=== PATIENT | female | born 1985 | race Caucasian/White ===

== ENCOUNTER 2016-11-02 10:37 | Emergency (ER) ==
[2016-11-02 10:44] VITALS: BP 144/95
--- NOTE | 2016-11-02 12:35 | PROVIDER DOCUMENTATION ---
HPI-Musculoskeletal Pain/Inj - GENERAL Chief Complaint: Back Pain Stated Complaint: BACK PAIN Time Seen by Provider: 11/02/16 12:30 Source: patient - HX OF PRESENT ILLNESS-MUSKULOSKELTAL Nature of Presenting Problem: 31 yo F presents to ED with cc of nonradiating lower back pain. Pt states she fell around a year ago and has had pain in her lower back ever since. Upon arrival to ED, pt is in no apparent distress. Quality of Pain: reports: aching Severity in ED: moderate Onset/Duration: other (chronic) Timing: still present Modifying Factors: improves with: nothing Any recent injury?: No (injury >1 year ago) Similar Symptoms Previously?: Yes (ongoing 1 year) - BACK & NECK PAIN/INJURY Back/Neck Pain Location: reports: lumbar spine Review of Systems - Adult - REVIEW OF SYSTEMS - ADULT Constitutional: reports: no symptoms reported. denies: chills, fever Eyes: reports: no symptoms reported. denies: discharge, dry eyes Ears, Nose, Mouth & Throat: reports: no symptoms reported. denies: ear discharge, ear pain Cardiovascular: reports: no symptoms reported. denies: chest pain, heart murmur Respiratory: reports: no symptoms reported. denies: cough, dyspnea on exertion Gastrointestinal: reports: no symptoms reported. denies: abdominal pain, frequent heartburn Genitourinary: reports: no symptoms reported. denies: dysuria, flank pain Musculoskeletal: reports: back pain (lower; chronic x 1 year) Integumentary: reports: no symptoms reported. denies: hives, itching Neurological: reports: no symptoms reported. denies: dizziness/vertigo, loss of balance Psychiatric: reports: no symptoms reported. denies: anxiety, emotional problems Endocrine: reports: no symptoms reported. denies: cold intolerance, heat intolerance Hematologic/Lymphatic: reports: no symptoms reported. denies: blood clots, easy bruising Allergic/Immunologic: reports: no symptoms reported. denies: allergic reactions , eczema All Other Systems: Reviewed and Negative Past History - Adult - PAST MEDICAL HISTORY-ADULT Review of Records: reports: Old Records Reviewed, Nursing Assessment Review, Medications Reviewed Major Childhood Illnesses: reports: denies history Cardiovascular: reports: denies history Respiratory: reports: denies history Gastrointestinal: reports: denies history Obstetrical/Gynecological: reports: denies history Genitourinary: reports: denies history Musculoskeletal: reports: chronic pain, intervertebral disc disease, neck/back injury Neurological: reports: denies history Endocrine/Immune: reports: denies history Other Conditions: reports: denies history - PRIOR SURGERIES/PROCEDURES Surgical/Procedure History: reports: BTL, - IMMUNIZATION STATUS Childhood Immunizations: UTD Flu Vaccine: See Nurse Assessment - FAMILY HISTORY Family History: reviewed, not pertinent Physical Exam-Injury Related - Physical Exam-Injury Related Initial Vital Signs Reviewed: Yes General Appearance: appears well, alert Eyes: PERRL/EOMI, pink conjunctivae Head, Ears, Nose, Mouth & Throat: normocephalic/atraumatic, moist mucous membranes Neck: non-tender, full range of motion Respiratory: no respiratory distress, no accessory muscle use Cardiovascular: normal peripheral pulses, regular rate, rhythm Abdominal Exam: non tender, soft Lymphatic: no adenopathy Back Exam: no CVA tenderness, vertebral tenderness. negative: swelling Extremity: normal range of motion, non-tender, normal gait Integumentary: normal color, warm/dry, blanching Neurologic: grossly normal, no motor/sensory deficits Psych/Mental Status: normal mood/affect, normal thought content, normal thought process - Glascow Coma Score Best Eye Response (Blanchard): (4) open spontaneously Best Verbal Response (Kera): (5) oriented Best Motor Response (Kera): (6) obeys commands Progress - PLAN OF CARE/RESULTS Progress/Plan/Lab Results: Vital Signs - 24 hr 11/02/16 10:42 Temperature 98.2 F Pulse Rate 90 Respiratory 18 Rate Blood Pressure 144/95 O2 Sat by Pulse 100 Oximetry Departure - Departure Time of Disposition Order: 12:34 DIAGNOSIS: Chronic back pain greater than 3 months duration Disposition: HOME 01 Certified Medical Emergency: Emergent Condition: Good Additional Instructions: ED Follow Up Instructions: You have been treated by a care provider in the Emergency Department. These instructions are being provided to you so you can have an understanding of how to care for yourself upon discharge. Upon discharge from the Emergency Department, you are responsible for making arrangements for follow-up care by a physician of your choice. Take all prescribed medications as directed. Return to the Emergency Department immediately for any new or worsening symptoms. You may call the Physician Referral phone number at [phone] to obtain a list of Physicians who are taking new patients. Prescriptions: Cyclobenzaprine [Flexeril] 10 mg PO TID #30 tablet Naproxen [Naprosyn] 500 mg PO BID #60 tablet Acetaminophen with Codeine [Tylenol with Codeine #3 Tablet] 1 each PO Q6H PRN PRN #30 tablet PRN Reason: Pain Referrals: None,PCP [Primary Care Provider] - Attestation - Scribe Verification/Attestation Scribe:: Drea Ackerman Acting as Scribe for:: Roberto Lo Scribe documention review:: This chart was documented by a scribe and accurately reflects the service the provider performed and the decisions made by the provider. - Physician/ Mid-level Attestation Patient care was provided by Mid-level provider ([employer]/PA):: No
== END 2016-11-02 12:49 | disposition home or self-care (01) ==
LOC: P.ED 10:37
DX: G89.29 Other chronic pain (principal); M54.5 Low back pain
CPT/HCPCS: 99282

== ENCOUNTER 2017-01-21 19:51 | Inpatient (IN) ==
[2017-01-21 21:27] LABS: MANUAL DIFF NEEDED? NO
[2017-01-21 21:28] LABS: URINE CULTURE PL NEEDED? NO; URINE SOURCE CLEAN CATCH
[2017-01-21 21:29] LABS: BASO% 0.1 % (0.0-0.8); EOS# 0.13 X1000 (0.0-0.7); EOS% 0.9 % (0.0-10.0); HEMATOCRIT 40.1 % (37.0-47.0); HEMOGLOBIN 13.5 g/dL (12.0-16.0); IMM GRAN# 0.06 X1000 (0.0-0.04); IMM GRAN% 0.4 % (0.0-0.5); LYMPH# 2.41 X1000 (1.2-3.4); LYMPH% 16.8 % (20.5-51.1); MCH 30.9 PG (27-31); MCHC 33.7 g/dL (33-37); MCV 91.8 FL (81-99); MONO# 0.39 X1000 (0.11-0.59); MONO% 2.7 % (1.7-9.3); MPV 8.7 FL (7.4-10.4); NEUT% 79.1 % (42.2-75.2); PLT 248 X1000 (130-400); RBC 4.37 XMIL (4.2-5.4)
[2017-01-21] MEDS ORDERED: G.I. COCKTAIL PO ONE (21:37)
[2017-01-21 21:45] LABS: BILIRUBIN URINE NEGATIVE (NEGATIVE); BLOOD URINE NEGATIVE (NEGATIVE); CLARITY SL. CLOUDY (CLEAR); COLOR YELLOW; GLUCOSE URINE NEGATIVE (NEGATIVE); LEUKOCYTES URINE NEGATIVE (NEGATIVE); NITRITE URINE NEGATIVE (NEGATIVE); PH URINE 6.5; PROTEIN URINE NEGATIVE (NEGATIVE); SP GRAVITY URINE 1.015; UROBILINOGEN URINE NORMAL
--- NOTE | 2017-01-21 21:47 | PROVIDER DOCUMENTATION ---
HPI-Abdominal Pain/GI Problem - General Source: patient - History of Present Illness-ABD Nature of Presenting Problems: 31 y/o F present to the ED with sharp abdominal pain that began at 2pm today. Pt says she is nausea. No vomiting and no change in bowel habits. Pt states she did not take any of her home pain meds because she thought it would not help. Pain Radiation: reports: epigastric Quality of Pain: reports: sharp Severity in ED: reports: moderate Onset/Duration: reports: this afternoon Timing: reports: still present Modifying Factors: improves with: nothing Associated Symptoms: reports: nausea. denies: diarrhea, fever/chills, sinus congestion/drainage, rash, vomiting Last BM: 24 hours ago <Leonard Arreguin - Last Filed: 01/22/17 01:38> <Gorge Martínez - Last Filed: 01/22/17 02:18> - General Chief Complaint: Abdominal Pain Stated Complaint: ABD PAIN Time Seen by Provider: 01/21/17 21:14 Allergies/Adverse Reactions: Patient Allergies Allergy/AdvReac Type Severity Reaction Status Date / Time No Known Allergies Allergy Verified 01/17/17 11:20 Home Medications: Home Medication List Medication Instructions Recorded Confirmed Last Taken Type Albuterol Sulfate [Proair Hfa] 8.5 gm IH Q4-6H PRN PRN #1 01/17/17 Unknown Rx hfa.aer.ad Benzonatate [Tessalon] 100 mg PO TID PRN PRN #20 capsule 01/17/17 Unknown Rx Fluoxetine [Prozac] 20 mg PO DAILY 01/17/17 01/17/17 01/17/17 History Clonazepam [Klonopin] 1 mg PO 01/21/17 Unknown History Oxycodone HCl/Acetaminophen 5 mg PO 01/21/17 Unknown History [Percocet 5-325 mg Tablet] Zolpidem [Ambien] 10 mg PO HS 01/21/17 01/21/17 Unknown History Review of Systems - Adult - REVIEW OF SYSTEMS - ADULT Constitutional: denies: chills, fever Eyes: reports: no symptoms reported Ears, Nose, Mouth & Throat: reports: no symptoms reported Cardiovascular: denies: chest pain, edema, palpitations, syncope Respiratory: reports: no symptoms reported Gastrointestinal: reports: abdominal pain, nausea. denies: constipation, diarrhea, vomiting Genitourinary: reports: no symptoms reported Musculoskeletal: reports: no symptoms reported Integumentary: reports: no symptoms reported Neurological: reports: no symptoms reported Psychiatric: reports: no symptoms reported Endocrine: reports: no symptoms reported Hematologic/Lymphatic: reports: no symptoms reported Allergic/Immunologic: reports: no symptoms reported All Other Systems: Reviewed and Negative <Leonard Arreguin - Last Filed: 01/22/17 01:38> Past History - Adult - PAST MEDICAL HISTORY-ADULT Review of Records: reports: Old Records Reviewed, Nursing Assessment Review, Medications Reviewed Major Childhood Illnesses: reports: denies history Cardiovascular: reports: denies history Respiratory: reports: denies history Gastrointestinal: reports: denies history Obstetrical/Gynecological: reports: denies history Genitourinary: reports: denies history Musculoskeletal: reports: chronic pain, intervertebral disc disease, neck/back injury Neurological: reports: denies history Psychiatric: reports: depression Endocrine/Immune: reports: denies history Other Conditions: reports: denies history - PRIOR SURGERIES/PROCEDURES Surgical/Procedure History: reports: cholecystectomy, , other (tubal ligation) - IMMUNIZATION STATUS Childhood Immunizations: UTD Flu Vaccine: See Nurse Assessment - FAMILY HISTORY Family History: reviewed, not pertinent - SOCIAL HISTORY Smoking: cigarettes, less than 1 pack/day Substance Use: alcohol Alcohol Use Frequency: occasionally Living Situation: family <Leonard Arreguin - Last Filed: 01/22/17 01:38> Physical Exam-General - PHYSICAL EXAM-ADULT Initial Vital Signs Reviewed: Yes - CONSTITUTIONAL General Appearance: alert, no apparent distress - EYES Eyes: PERRL/EOMI, pink conjunctivae - HEAD, EARS, NOSE, MOUTH & THROAT HENMT: moist mucous membranes, normal ENT inspection, TMs normal, pharynx normal - NECK Neck: non-tender, full range of motion, supple, normal inspection - RESPIRATORY Respiratory: lungs clear, normal breath sounds, no pleuratic chest pain, no respiratory distress, no accessory muscle use - CARDIOVASCULAR Cardiovascular: normal peripheral pulses, regular rate, rhythm - GASTROINTESTINAL (ABDOMEN) Abdominal Exam: normal bowel sounds, soft, tenderness (epigastric) - MUSCULOSKELETAL Back Exam: normal inspection, no CVA tenderness, no vertebral tenderness Extremity: normal range of motion, non-tender, normal gait, normal inspection - SKIN Integumentary: normal color, normal turgor, warm/dry - NEUROLOGIC Neurologic: grossly normal, no motor/sensory deficits - PSYCHIATRIC Psych/Mental Status: normal mood/affect, normal thought content, normal thought process, oriented x 3 <Leonard Arreguin - Last Filed: 01/22/17 01:38> Progress - PLAN OF CARE/RESULTS Progress/Plan/Lab Results: Orders Category Date Time Status ED: Urine Bedside ORDERED Care 01/21/17 20:29 Active ABDOMEN FLAT/UPRIGHT [RAD] Stat Exams 01/21/17 21:34 Taken ABDOMEN/PELVIS W/CONTRAST [CT] Stat Exams 01/21/17 22:07 Taken AMYLASE [CHEM] Stat Lab 01/21/17 21:20 Completed CBC WITH DIFF [HEME] Stat Lab 01/21/17 21:20 Completed COMPREHENSIVE METABOLIC PANEL [CHEM] Stat Lab 01/21/17 21:20 Completed LIPASE [CHEM] Stat Lab 01/21/17 21:[address] W/POSS RFLX CULT [URINALYSIS] Stat Lab 01/21/17 21:20 Completed 0.9% Sodium Chloride Inj [Ns] 1,000 ml Med 01/21/17 22:25 Active IV 250 mls/hr Lido/Encarnacion Alk/Al&mg Hydrox [G.i. Cocktail] Med 01/21/17 21:37 Discontinued 30 ml PO NOW ONE Morphine Med 01/21/17 22:25 Discontinued 4 mg IV NOW ONE Polyethylene Glycol 3350 [Miralax] Med 01/21/17 22:07 Discontinued 17 gm PO NOW ONE Promethazine [Phenergan] Med 01/21/17 22:25 Discontinued 25 mg IV NOW ONE Sodium Chloride 0.9% Med 01/21/17 22:25 Discontinued 10 ml INJ NOW ONE Vital Signs Temp Pulse Resp BP Pulse Ox 01/21/17 20:23 98 F 93 H 18 141/87 100 No Known Allergies Allergy (Verified 01/17/17 11:20) Albuterol Sulfate [Proair Hfa] 8.5 gm IH Q4-6H PRN PRN #1 hfa.aer.ad 01/17/17 Benzonatate [Tessalon] 100 mg PO TID PRN PRN #20 capsule 01/17/17 Fluoxetine [Prozac] 20 mg PO DAILY 01/17/17 Clonazepam [Klonopin] 1 mg PO 01/21/17 Oxycodone HCl/Acetaminophen [Percocet 5-325 mg Tablet] 5 mg PO 01/21/17 Zolpidem [Ambien] 10 mg PO HS 01/21/17 Laboratory 01/21/17 01/21/17 01/21/17 21:20 21:20 21:20 WBC 14.33 H RBC 4.37 Hgb 13.5 Hct 40.1 MCV 91.8 MCH 30.9 MCHC 33.7 RDW Std Deviation 12.7 Plt Count 248 MPV 8.7 Immature Gran % (Auto) 0.4 Neut % (Auto) 79.1 H Lymph % (Auto) 16.8 L Swift % (Auto) 2.7 Eos % (Auto) 0.9 Baso % (Auto) 0.1 Immature Gran # (Auto) 0.06 H Neut # (Auto) 11.32 H Lymph # (Auto) 2.41 Swift # (Auto) 0.39 Eos # (Auto) 0.13 Baso # (Auto) 0.02 Sodium 136 Potassium 3.5 Chloride 97 L Carbon Dioxide 24 L Anion Gap 15 BUN 9 Creatinine 0.5 Estimated GFR/1.73 m2 > 60 BUN/Creatinine Ratio 18 Glucose 101 Calculated Osmolality 271 Calcium 9.2 Total Bilirubin 0.20 AST 30 ALT 42 H Alkaline Phosphatase 98 Total Protein 7.0 Albumin 4.1 Globulin 3.0 Albumin/Globulin Ratio 1.0 Amylase 199 Lipase 515 H Urine Source CLEAN CATCH Urine Color YELLOW Urine Clarity SL. CLOUDY A Urine pH 6.5 Ur Specific [place] 1.015 Urine Protein NEGATIVE Urine Ketones NEGATIVE Urine Blood NEGATIVE Urine Nitrite NEGATIVE Urine Bilirubin NEGATIVE Urine Urobilinogen NORMAL Urine Microscopic RBC Not Reportable Urine WBC NEGATIVE Ur Epithelial Cells <10 Urine Bacteria 4+ Urine Glucose NEGATIVE - XRAY 1 XRAY Study: Abdomen Impression: Abnormal XRAY Interpretation: Constipation - CT/MRI 1 CT Study: Abdomen, Pelvis Impression: Abnormal (peripancreatic alfredito and moderate ill-defined fluid suspicious foracute pancreatitis correlate clincally.) <Leonard Arreguin - Last Filed: 01/22/17 01:38> Departure <Leonard Arreguin - Last Filed: 01/22/17 01:38> - Departure Time of Disposition Order: 02:00 Certified Medical Emergency: Emergent <Gorge Martínez - Last Filed: 01/22/17 02:18> - Departure DIAGNOSIS: Pancreatitis Qualifiers: Chronicity: acute Pancreatitis type: alcohol induced Acute pancreatitis complication: no infection or necrosis Qualified Code(s): K85.20 - Alcohol induced acute pancreatitis without necrosis or infection Disposition: ADMITTED INPATIENT 09 Condition: Fair Attestation - Scribe Verification/Attestation Scribe:: Leonard Arreguin Acting as Scribe for:: Gorge Martínez Scribe documention review:: This chart was documented by a scribe and accurately reflects the service the provider performed and the decisions made by the provider. <Leonard Arreguin - Last Filed: 01/22/17 01:38> Physician Attestation
[2017-01-21 21:54] LABS: URINE EPITHELIAL CELLS <10 /HPF (<10)
[2017-01-21 22:05] LABS: AGAP 15; ALBUMIN 4.1 g/dL (3.5-5.0); ALKALINE PHOSPHATASE 98 U/L (32-104); AMYLASE 199 U/L (20-200); BUN 9 mg/dL (8-22); CALCIUM 9.2 mg/dL (8.8-10.2); CHLORIDE 97 mmol/L (98-107); COSMO 271; GOT 30 U/L (10-30); GPT 42 U/L (10-36); LIPASE 515 U/L (13-60); POTASSIUM 3.5 mmol/L (3.5-5.1); SODIUM 136 mmol/L (136-145); TCO2 24 mmol/L (25-35)
[2017-01-21] MEDS ORDERED: MIRALAX PO ONE (22:07)
[2017-01-21] MEDS ORDERED: SODIUM CHLORIDE 0.9% INJ ONE (22:25)
[2017-01-21] MEDS ORDERED: MORPHINE IV ONE (22:25)
[2017-01-21] MEDS ORDERED: PHENERGAN IV ONE (22:25)
[2017-01-21] MEDS ORDERED: NS 1,000 ML IV PRN (22:25)
[2017-01-22] MEDS ORDERED: SODIUM CHLORIDE 0.9% INJ ONE (02:18)
[2017-01-22] MEDS ORDERED: VENTOLIN HFA INH PRN (02:21)
[2017-01-22] MEDS: MORPHINE IV PRN ×2 (02:45→04:49)
[2017-01-22] MEDS: NS 1,000 ML IV SCH ×2 (02:46→12:50)
[2017-01-22] MEDS: PHENERGAN IV PRN ×2 (04:48→12:47)
[2017-01-22] MEDS ORDERED: KLONOPIN PO PRN (05:15)
[2017-01-22] MEDS ORDERED: MORPHINE IV PRN (06:57)
--- NOTE | 2017-01-22 08:29 | Diag Imaging Result Document ---
PROCEDURE NAME: ABDOMEN FLAT/UPRIGHT - 01/21/2017 FLAT AND UPRIGHT ABDOMEN: FINDINGS: There is a large amount of stool throughout the colon most notably in the right colon. There are surgical clips in the gallbladder fossa. The stomach and small bowel are not distended. There are no abnormal calcifications present. IMPRESSION: Constipation.
[2017-01-22] MEDS: DILAUDID IV PRN ×5 (08:34→22:29)
[2017-01-22] MEDS: PROZAC PO SCH (08:34)
--- NOTE | 2017-01-22 09:21 | Diag Imaging Result Document ---
PROCEDURE NAME: ABDOMEN/PELVIS W/CONTRAST - 01/21/2017 CT SCAN OF THE ABDOMEN AND PELVIS WITH CONTRAST: INDICATION: Right lower quadrant pain. COMPARISON: 07/02/2016. Preliminary interpretation was given by the on-call radiologist. FINDINGS: There is increased attenuation at both lung bases compatible with atelectasis or scarring. There are cholecystectomy clips. There is a nonspecific 12 mm hypodensity within the left lobe of the liver. There is moderate peripancreatic fluid and soft tissue stranding suggesting acute pancreatitis. No pseudocyst, necrosis, or splenic vein thrombosis is appreciated. The kidneys are unremarkable. The appendix appears normal. There is a small amount of free fluid within the pelvis. No free air is demonstrated. There is fluid within the endometrial canal. There is mild constipation. Mildly prominent small bowel loops are noted in the left upper quadrant consistent with mild localized ileus. There is no free air. IMPRESSION: 1. Moderate peripancreatic fluid and soft tissue stranding suggesting acute pancreatitis. Correlate clinically. 2. 12 mm hypodensity in the left lobe of the liver could represent a hemangioma but considered indeterminate. 3. Status-post cholecystectomy. 4. Normal appendix. 5. Mild constipation.
[2017-01-22 09:30] LABS: MANUAL DIFF NEEDED? NO
[2017-01-22 09:32] LABS: BASO% 0.1 % (0.0-0.8); EOS# 0.05 X1000 (0.0-0.7); EOS% 0.5 % (0.0-10.0); HEMATOCRIT 37.3 % (37.0-47.0); HEMOGLOBIN 12.6 g/dL (12.0-16.0); IMM GRAN# 0.02 X1000 (0.0-0.04); IMM GRAN% 0.2 % (0.0-0.5); LYMPH# 1.29 X1000 (1.2-3.4); MCH 30.9 PG (27-31); MCHC 33.8 g/dL (33-37); MCV 91.4 FL (81-99); MONO% 3.7 % (1.7-9.3); MPV 8.5 FL (7.4-10.4); NEUT% 83.5 % (42.2-75.2); PLT 211 X1000 (130-400); RBC 4.08 XMIL (4.2-5.4)
--- NOTE | 2017-01-22 09:38 | HISTORY AND PHYSICAL ---
PRIMARY CARE PHYSICIAN: None. CHIEF COMPLAINT: Epigastric abdominal pain with nausea that began around 2:00 p.m. yesterday. HISTORY OF PRESENTING ILLNESS: This is a 31-year-old female who presented to [facility] ER with an acute onset of epigastric abdominal pain with nausea that began around 2:00 p.m. yesterday. She states that she did not have any vomiting or diarrhea. Workup in the ER showed a white blood cell count of 14.33. Abdomen x-ray showed constipation. CT of the abdomen and pelvis showed peripancreatic edema and moderate ill-defined fluid suspicious for an acute pancreatitis, so, she was admitted for further evaluation and treatment. PAST MEDICAL HISTORY: Chronic pain. PAST SURGICAL HISTORY: Cholecystectomy, section, and bilateral tubal ligation. FAMILY HISTORY: Noncontributory. SOCIAL HISTORY: She currently lives with her family. She denies any tobacco, alcohol, or illicit drug use. ALLERGIES: She has no known drug allergies. HOME MEDICATIONS: 1. Percocet 5 one p.o. q. 8 hours p.r.n.; will be held. 2. Klonopin 1 mg p.o. daily p.r.n. 3. Prozac 20 mg p.o. daily. LABORATORY: Laboratory data showed a white blood cell count of 14.33, a hemoglobin of 13.5, hematocrit 40.1, platelets 248,000. Sodium 136, potassium 3.5, chloride 97, CO2 of 24. BUN of 9, creatinine 0.5, glucose 101. Amylase 199, lipase 515. Urinalysis was negative except for 4+ bacteria. Abdomen x-ray showed constipation. CT of the abdomen and pelvis per ER documentation showed peripancreatic edema and moderate ill- defined fluid suspicious for an acute pancreatitis. Correlate clinically. REVIEW OF SYSTEMS: She denied any fever, chills, blurred vision, dizziness, chest pain, coughing, shortness of breath. She was positive for epigastric abdominal pain, nausea. She denied any vomiting, diarrhea, burning or hurting with urination. PHYSICAL EXAMINATION: VITAL SIGNS: On arrival, she had a temperature of 98 degrees, pulse 93, Respirations 18, blood pressure 141/87. Saturating 100% on room air. GENERAL: This is a 31-year-old female who is lying in the bed and answers questions appropriately. HEENT: Normocephalic and atraumatic. Pupils are equal, round, reactive to light. Extraocular movements are intact. Oropharynx and nares are clear. NECK: Supple. LUNGS: Clear to auscultation bilaterally with equal lung expansion and chest wall movement. HEART: With regular rate and rhythm. No murmurs, rubs, or gallops. ABDOMEN: Soft. There is tenderness to palpation to the epigastric and right upper quadrant area. Bowel sounds are present x4 quadrants. EXTREMITIES: No clubbing, cyanosis, or edema. NEUROLOGIC: The cranial nerves 2-12 are grossly intact. ASSESSMENT: 1. Acute pancreatitis. 2. Epigastric abdominal pain. 3. Nausea. 4. Leukocytosis, most likely reactive. PLAN: She was admitted to the medical unit at [facility], held n.p.o., placed on normal saline at 100 mL an hour, Dilaudid 1 mg IV q. 3 hours p.r.n., Phenergan 12.5 mg IV q.4 hours p.r.n. We will recheck a CBC, CMP, and lipase this a.m. If there is improvement in those, we will make an effort to advance her to at least some ice chips if tolerated and then advance as she tolerates. Dictated by EMERITA Kwong for Phill Welch MD pt examined, agree with above, pt did admit to drinking more heavily since last , last drink was 4-5 days ago but was a pint of liquor, suspect this is cause of pancreatitis, but we will continue to follow closely APENOT MTDD
[2017-01-22 09:58] LABS: AGAP 9; ALBUMIN 3.8 g/dL (3.5-5.0); ALKALINE PHOSPHATASE 86 U/L (32-104); BUN 5 mg/dL (8-22); CALCIUM 8.1 mg/dL (8.8-10.2); CHLORIDE 102 mmol/L (98-107); COSMO 270; GOT 31 U/L (10-30); GPT 40 U/L (10-36); POTASSIUM 3.8 mmol/L (3.5-5.1); SODIUM 136 mmol/L (136-145); TCO2 25 mmol/L (25-35); TOTAL PROTEIN 5.9 g/dL (6.3-8.3)
[2017-01-22] MEDS ORDERED: LR 1,000 ML IV ONE (15:44)
[2017-01-22] MEDS: LR 1,000 ML IV SCH (18:11)
[2017-01-22] MEDS: AMBIEN PO SCH (20:12)
[2017-01-23] MEDS: LR 1,000 ML IV SCH ×5 (00:11→22:00)
[2017-01-23] MEDS: DILAUDID IV PRN ×6 (04:12→21:06)
[2017-01-23 06:18] LABS: MANUAL DIFF NEEDED? NO
[2017-01-23 06:25] LABS: BASO% 0.1 % (0.0-0.8); EOS# 0.19 X1000 (0.0-0.7); EOS% 2.6 % (0.0-10.0); HEMATOCRIT 36.8 % (37.0-47.0); HEMOGLOBIN 12.1 g/dL (12.0-16.0); IMM GRAN# 0.01 X1000 (0.0-0.04); IMM GRAN% 0.1 % (0.0-0.5); LYMPH# 1.12 X1000 (1.2-3.4); LYMPH% 15.4 % (20.5-51.1); MCH 30.7 PG (27-31); MCHC 32.9 g/dL (33-37); MCV 93.4 FL (81-99); MONO% 5.5 % (1.7-9.3); MPV 8.9 FL (7.4-10.4); NEUT% 76.3 % (42.2-75.2); PLT 193 X1000 (130-400); RBC 3.94 XMIL (4.2-5.4)
[2017-01-23 07:01] LABS: AGAP 12; ALBUMIN 3.6 g/dL (3.5-5.0); ALKALINE PHOSPHATASE 144 U/L (32-104); BUN 4 mg/dL (8-22); CALCIUM 8.5 mg/dL (8.8-10.2); CHLORIDE 101 mmol/L (98-107); COSMO 270; GOT 308 U/L (10-30); GPT 201 U/L (10-36); POTASSIUM 3.7 mmol/L (3.5-5.1); SODIUM 137 mmol/L (136-145); TCO2 25 mmol/L (25-35); TOTAL PROTEIN 6.1 g/dL (6.3-8.3)
[2017-01-23 07:43] LABS: AMYLASE 354 U/L (20-200); HDL 45 mg/dL (45-65); LDL 52 mg/dL; TRIGLYCERIDES 144 mg/dL (35-135); VLDL 29 mg/dL
[2017-01-23 07:48] LABS: LIPASE 890 U/L (13-60)
[2017-01-23] MEDS: PHENERGAN IV PRN ×2 (08:11→17:51)
[2017-01-23] MEDS: PROZAC PO SCH (08:12)
--- NOTE | 2017-01-23 13:00 | Diag Imaging Result Document ---
PROCEDURE NAME: MRI ABDOMEN W/O CONTRAST - 01/23/2017 MRI ABDOMEN: COMPARISON: CT 01/22/2017. FINDINGS: MRI and MRCP was performed. There are cholecystectomy changes. The pancreatic or biliary tree is completely normal. No abnormal dilation or filling defects. The common bile duct measures about 7 mm which is not unusual in cases of cholecystectomy patients. There is some peripancreatic fluid similar to prior. This extends throughout the anterior pararenal space. IMPRESSION: Peripancreatic fluid compatible with acute pancreatitis. No abnormality of pancreatic or biliary tree.
[2017-01-23] MEDS ORDERED: LR 1,000 ML IV ONE (14:46)
--- NOTE | 2017-01-23 15:02 | PROGRESS NOTE ---
DATE: 01/23/2017 SUBJECTIVE: Patient has got severe abdominal, pain, nausea. OBJECTIVE: Vital Signs: Blood pressure 126/71, heart rate 107, respiratory rate 18, temperature 99.1, 91% on 2 L. Cardiovascular: Regular rate and rhythm. Pulmonary: Bilateral breath sounds. Clear to auscultation. GI: Soft, tender to palpation, nondistended. Bowel sounds are positive. LABORATORY DATA: White count has come down. Hemoglobin and hematocrit is 12 and 36. However, her liver enzymes have climbed 308 and 201. Her GGT is elevated at 493, which is approximately upper end of normal of 32, so that is almost 100 times normal. Her AST, amylase and lipase are still rising and amylase is 354, lipase 890. Granted lipase yesterday was 802, so the rate of increase is less. I think she is hopefully in the process of peaking. It is still not clear what her source of pancreatitis is. She denies heavy alcohol use, at least with her mother in the room. However, she told me yesterday that she drinks up to a pint a day. She has been drinking more over the last several months. PROBLEM LIST: 1. Pancreatitis I am going to continue IV fluids. I am going to bolus her again today. Continue IV fluids. Her MRCP was non diagnostic so I think at least in my professional opinion I guess is that I do not think it is a biliary problem as far as a stone or anything like that and I think she is probably not telling us how much she drinks, or not being as honest with how much she has been drinking up until now, so I think that is probably a significant part of what's going on. She does take Prozac. Apparently, that is not a known offender for pancreatitis. So we will continue to monitor. If she is not much improved tomorrow, she may end up needing a GI evaluation, consultation and we will follow accordingly. Dr. Gonzalez to assume care tomorrow. 2. Anxiety, depression. We will continue regular medications. DISPOSITION: Pending her clinical workup and her clinical course.
[2017-01-23] MEDS: AMBIEN PO SCH (21:06)
[2017-01-24] MEDS: DILAUDID IV PRN ×7 (00:17→21:30)
[2017-01-24] MEDS: DILAUDID PO PRN (00:40)
[2017-01-24] MEDS: LR 1,000 ML IV SCH ×3 (06:27→21:18)
[2017-01-24 07:01] LABS: HEMATOCRIT 34.4 % (37.0-47.0); HEMOGLOBIN 11.1 g/dL (12.0-16.0); MCH 30.4 PG (27-31); MCHC 32.3 g/dL (33-37); MCV 94.2 FL (81-99); RBC 3.65 XMIL (4.2-5.4)
[2017-01-24 07:23] LABS: AGAP 14; ALBUMIN 3.6 g/dL (3.5-5.0); ALKALINE PHOSPHATASE 179 U/L (32-104); AMYLASE 128 U/L (20-200); BUN 4 mg/dL (8-22); CALCIUM 8.7 mg/dL (8.8-10.2); CHLORIDE 98 mmol/L (98-107); COSMO 265; GOT 181 U/L (10-30); GPT 203 U/L (10-36); LIPASE 126 U/L (13-60); POTASSIUM 3.9 mmol/L (3.5-5.1); SODIUM 135 mmol/L (136-145); TCO2 22 mmol/L (25-35); TOTAL PROTEIN 6.2 g/dL (6.3-8.3)
[2017-01-24] MEDS: PROZAC PO SCH (09:05)
[2017-01-24] MEDS: PHENERGAN IV PRN ×3 (09:48→16:43)
--- NOTE | 2017-01-24 17:20 | PROGRESS NOTE ---
DATE: 01/24/2017 SUBJECTIVE: The patient continues with some abdominal pain although she states is not as severe as it was yesterday, is still pretty significant at times. She has some accompanying nausea. She has tolerated clear liquids and sips of Coke. OBJECTIVE: Vital Signs: Blood pressure is 123/64 with a heart rate of 91, respirations are 18, temperature is 98.4 degrees oral with room air saturations of 95%. Cardiovascular: Regular rate and rhythm, S1, S2 appreciated. Pulmonary: Breath sounds are clear. No increased work of breathing noted. Gastrointestinal: Abdomen is soft. Generalized tenderness to palpation. Nondistended with bowel sounds in all 4 quadrants. Extremities: No clubbing, cyanosis, or edema. Pulses are palpable. Calves are nontender. Neurologic: She is alert and oriented x3. LABS: WBC is 6.89 with hemoglobin 11.1, hematocrit 34.4, platelets of 184,000. Sodium is 135, potassium 3.9, BUN 4, creatinine 0.4 with a glucose of 58, AST is 181 down from 308, ALT is 203, alkaline phosphatase is 179, lipase is 126 down from 890. PROBLEM LIST: 1. Pancreatitis. We are going to continue her IV fluids. Continue her treatment. I did speak to the patient today in private and she did state that she has always drank alcohol but since May she has a greatly increased her alcohol consumption as she is going through a significant stressor in her family involving her child. She uses alcohol to deal with this. We did discuss at length her INCOMPLETE REPORT -- DICTATION ENDS HERE. Dictated by EMERITA Narayanan for [place] Gonzalez MD cc: EMERITA Narayanan MD
--- NOTE | 2017-01-24 17:24 | PROGRESS NOTE ---
DATE: 01/24/2017 SUBJECTIVE: Patient continues with abdominal pain, although it is not as severe today. She does have some nausea. She is tolerating some sips of clear liquids. She denies any vomiting, diarrhea. OBJECTIVE: Vital Signs: Blood pressure is 123/64 with a heart rate of 80, respirations are 18, temperature is 98.4 degrees oral with room air saturations 95-96%. Cardiovascular: Regular rate and rhythm, S1, S2 appreciated. Pulmonary: Breath sounds are clear. No increased work of breathing noted. Gastrointestinal: Soft, it is tender to palpation, nondistended with bowel sounds in all 4 quadrants. Extremities: No clubbing, cyanosis, or edema. Pulses are palpable x4 and calves are nontender. Neurologic: She is alert and oriented x3. DIAGNOSTICS: WBC is 6.89 with hemoglobin 11.1, hematocrit 34.4 and platelets of 184,000. Sodium 135, potassium 3.9, BUN 4, creatinine 0.4 with a glucose of 58,. Her AST is 181, ALT is 203 with alkaline phosphatase of 179 and lipase is down to 126. PROBLEM LIST: 1. Pancreatitis. We are going to continue with her IV fluids giving Dilaudid for pain and Phenergan for nausea. We will slowly increase her diet as tolerated. 2. Anxiety and depression. Will continue her home medications. I did discuss the patient's history in private and she did state that she has always drank alcohol regularly probably since she was a teenager but over the last 6 months she has greatly increased her alcohol consumption due to stress due to a family problem involving her child. We did discuss the perils of continuing with alcohol use and abuse leading to acute pancreatitis, chronic pancreatitis, ultimately her . I did encourage her to get help to learn to deal with things without alcohol. We will continue trending labs. Dictated by EMERITA Narayanan for Montana Gonzalez MD cc: EMERITA Narayanan MD
[2017-01-24] MEDS: AMBIEN PO SCH (21:29)
[2017-01-25] MEDS: DILAUDID IV PRN ×3 (00:40→06:45)
[2017-01-25 01:17] LABS: URINE MICROSCOPIC NEEDED? NO; URINE SOURCE VOIDED
[2017-01-25] MEDS: PHENERGAN IV PRN (03:20)
[2017-01-25] MEDS: DILAUDID PO PRN ×3 (03:40→15:30)
[2017-01-25] MEDS: LR 1,000 ML IV SCH (09:03)
[2017-01-25] MEDS: PROZAC PO SCH (09:03)
[2017-01-25] MEDS ORDERED: DILAUDID ONE (11:02)
--- NOTE | 2017-01-25 14:18 | PROGRESS NOTE ---
DATE: 01/25/2017 SUBJECTIVE: The patient notes she is feeling a little bit better, but she has not actually tried to eat or drink anything this morning. She denies any current fevers or chills. OBJECTIVE: Vital Signs: Reviewed. Temperature 98.6 degrees, blood pressure 130/83, saturation 97% on room air, pulse 80. General: The patient is well developed and well nourished. She is currently in no real respiratory distress. She is awake, alert, and oriented. Neck: Supple. Cardiovascular: Regular rate. Chest: Relatively clear. Abdomen: Soft. Much less tender, but ammonia still operator in the epigastric region. Extremities: Moves all extremities. Neurologic: No focal changes. Skin: Warm and dry. No rashes. LABORATORIES: Pending. ASSESSMENT: 1. Pancreatitis, improving. We will continue to advance diet. 2. Acute hepatitis secondary to acute alcoholism. 3. Hyperbilirubinemia, resolved. 4. Elevated C-reactive protein. 5. Anxiety and depression. PLAN: We will continue to advance diet. We will saline lock her this morning. Hopefully, home later this afternoon or tomorrow. Further orders as needed. cc: Montana Gonzalez MD
[2017-01-25] MEDS ORDERED: SALINE LOCK IV FLUID XX ONE (17:22)
[2017-01-25 18:32] LABS: HEMATOCRIT 35.4 % (37.0-47.0); HEMOGLOBIN 11.7 g/dL (12.0-16.0); MCH 30.5 PG (27-31); MCHC 33.1 g/dL (33-37); MCV 92.4 FL (81-99); RBC 3.83 XMIL (4.2-5.4)
[2017-01-25 19:10] LABS: BILIRUBIN URINE NEGATIVE (NEGATIVE); BLOOD URINE NEGATIVE (NEGATIVE); CLARITY CLEAR (CLEAR); COLOR STRAW; GLUCOSE URINE NEGATIVE (NEGATIVE); LEUKOCYTES URINE NEGATIVE (NEGATIVE); NITRITE URINE NEGATIVE (NEGATIVE); PROTEIN URINE NEGATIVE (NEGATIVE); SP GRAVITY URINE 1.015; UROBILINOGEN URINE NORMAL
[2017-01-25 19:25] VITALS: BP 152/85
[2017-01-25 21:41] LABS: AGAP 11; ALBUMIN 3.8 g/dL (3.5-5.0); ALKALINE PHOSPHATASE 157 U/L (32-104); AMYLASE 66 U/L (20-200); BUN 3 mg/dL (8-22); CALCIUM 8.7 mg/dL (8.8-10.2); CHLORIDE 104 mmol/L (98-107); COSMO 274; GOT 70 U/L (10-30); GPT 148 U/L (10-36); LIPASE 100 U/L (13-60); POTASSIUM 3.7 mmol/L (3.5-5.1); SODIUM 139 mmol/L (136-145); TCO2 24 mmol/L (25-35)
--- NOTE | 2017-01-26 17:07 | DISCHARGE SUMMARY ---
ADMISSION DATE: 01/21/2017 DISCHARGE DATE: 01/25/2017 DIAGNOSES: 1. Acute pancreatitis. 2. Epigastric abdominal pain. 3. Acute hepatitis secondary to acute alcoholism. 4. Hyperbilirubinemia, resolved. 5. Elevated C-reactive protein. 6. Anxiety and depression. DIAGNOSTICS: Sputum culture revealed normal henry. Radiology 01/21/2017. CT of the abdomen and pelvis revealed moderate pancreatic fluid and soft tissue stranding suggestive of acute pancreatitis. On 01/23/2017 MRI of the abdomen and MRCP revealed peripancreatic fluid compatible with acute pancreatitis. No abnormality of the pancreatic or biliary tree. HOSPITAL COURSE: The patient presented to the emergency room complaining of abdominal pain and nausea that had increased in intensity. She denied vomiting or diarrhea. She was found to have acute pancreatitis for which she was treated with IV pain and nausea medications and IV hydration. She was initially n.p.o. Diet was slowly advanced. LFTs elevated with a maximum of AST 308, ALT 201, and alkaline phosphatase of 144. They have progressively decreased since. Lipase maximized at 890. It has decreased to 100 on the day of her discharge. She was found to have a total bilirubin that maximized at 1.20. It was 0.20 on discharge. During the hospitalization, she did state that she drinks daily alcohol, and she has for many, many years. Over the last 6 months, her alcohol consumption has increased greatly as she has been going through some significant difficulties with her child. Myself as well as Dr. Gonzalez did discuss with the patient at length the importance of alcohol cessation. This could ultimately lead to chronic pancreatitis, liver damage, or . She did voice understanding. I did recommend counseling and AA upon discharge. PHYSICAL EXAMINATION ON DISCHARGE: Cardiovascular: Regular rate and rhythm. S1, S2 appreciated. Pulmonary: Breath sounds are clear with no increased work of breathing noted. Gastrointestinal: Abdomen was soft with some slight epigastric tenderness. Nondistended with bowel sounds in all 4 quadrants. Extremities: No clubbing, cyanosis, or edema. Calves are nontender. Pulses palpable x4. Skin: Warm and dry with no rashes or lesions noted. Vital Signs: On discharge, blood pressure 152/85 with a heart rate of 90, respirations 18, temperature 98.5 degrees oral with room air saturations of 99%. DISCHARGE ACTIVITY: As tolerated. DISCHARGE DIET: Full liquids to GI soft. DISCHARGE MEDICATIONS: Prozac 20 mg daily. Klonopin 1 mg daily p.r.n. Dilaudid 2 mg q.3 hours p.r.n. She was instructed to stop taking Percocet 5/325. FOLLOWUP: She needs to follow up with her primary care physician in 1-2 weeks. She was given the physician referral line to call for list of doctors accepting new patients. She is discharged home in stable condition with her . TIME: This is a greater than 30-minute discharge. Dictated by EMERITA Narayanan for Montana Gonzalez MD cc: EMERITA Narayanan MD
== END 2017-01-25 19:15 | disposition home or self-care (01) ==
LOC: P.ED 19:51 → P.MEDSURG 19:52 → UNDOADMIN 01-22 02:32
PROVIDERS: ATTEND Internal Medicine